=== PATIENT | female | born 1995 | race Caucasian/White ===

== ENCOUNTER 2019-05-03 12:45 | Emergency (ER) | payer OTHER ==
--- NOTE | 2019-05-03 12:51 | EDM.PDOC ---
ED HPI GENERAL MEDICAL PROBLEM - General Chief Complaint: Cardiovascular Problem Stated Complaint: HEART Time Seen by Provider: 05/03/19 12:46 Source of Information: Reports: Patient History Limitations: Reports: No Limitations - History of Present Illness INITIAL COMMENTS - FREE TEXT/NARRATIVE: HISTORY AND PHYSICAL: History of present illness: Patient is a 23-year-old female who presents to the emergency room with concerns of dyspnea and palpitations since yesterday. She states yesterday she didn't try to alleviate her symptoms by resting. Pain is not reproducible and is not exacerbated with physical activity or movement. She does have some mild associated nausea and states "something does not feel right". Patient reports she does have a history of bigeminy/arrhythmia. She has seen a hot braider for this, last time being approximately a year ago at [facility]. Reports there was no concerns at that time and was informed to follow up as needed. Patient denies any fever, chills, headache, change in vision, syncope or near syncope. Denies any back pain or cough. Denies any abdominal pain, vomiting, diarrhea, constipation or dysuria. Patient has been eating and drinking appropriately. Review of systems: As per history of present illness and below otherwise all systems reviewed and negative. Past medical history: As per history of present illness and as reviewed below otherwise noncontributory. Surgical history: As per history of present illness and as reviewed below otherwise noncontributory. Social history: See social history for further information Family history: As per history of present illness and as reviewed below otherwise noncontributory. Physical exam: General: Well-developed and well-nourished 23-year-old female. Alert and oriented. Nontoxic appearing and in no acute distress. HEENT: Atraumatic, normocephalic, pupils equal and reactive bilaterally, negative for conjunctival pallor or scleral icterus, mucous membranes moist, TMs normal bilaterally, throat clear, neck supple, nontender, trachea midline. No drooling or trismus noted. No meningeal signs. No hot potato voice noted. Lungs: Clear to auscultation, breath sounds equal bilaterally, chest nontender. Heart: S1S2, regular rate and rhythm without overt murmur Abdomen: Soft, nondistended, nontender. Negative for masses or hepatosplenomegaly. Negative for costovertebral tenderness. Pelvis: Stable nontender. Genitourinary: Deferred. Rectal: Deferred. Skin: Intact, warm, dry. No lesions or rashes noted. Extremities: Atraumatic, moves all extremities per self without difficulty or deficits, negative for cords or calf pain. Neurovascular unremarkable. Neuro: Awake, alert, oriented. Cranial nerves II through XII unremarkable. Cerebellum unremarkable. Motor and sensory unremarkable throughout. Exam nonfocal. Notes: Lab work is unremarkable. Vital signs are stable. Did discuss all diagnostic findings with patient. Patient states that there is possibly an anxiety component associated with her palpitations. We did discuss possibly following up for a Holter monitor, she states she has done these in the past and they have not found any other findings other than the arrhythmia. We'll give her a limited amount of Ativan to use while her is at home and if her symptoms are high. Supportive care measures were reviewed and discussed. Voices understanding and is agreeable to plan of care. Denies any further questions or concerns at this time. Diagnostics: CBC, CMP, UA, HCGU, TSH, Troponin, EKG, CXR Therapeutics: IV fluids, Toradol Prescription: Ativan 0.5 (#8) Impression: Palpitations Plan: 1. Avoid any stimulants such as caffeine, alcohol or tobacco. 2. Follow-up with your primary care provider for follow-up, may need a Holter monitor for further evaluation. 3. Return to the ED as needed and as discussed. Definitive disposition and diagnosis as appropriate pending reevaluation and review of above. chest Pain Score (Numeric/FACES): 8 - Related Data Allergies Allergy/AdvReac Type Severity Reaction Status Date / Time diphenhydramine Allergy Anaphylactic Verified 05/03/19 12:49 [From Benadryl] Shock Home Meds: Home Meds . [No Known Home Meds] 06/18/16 [History] Past Medical History HEENT History: Reports: None Cardiovascular History: Reports: None Respiratory History: Reports: Other (See Below) Other Respiratory History: Asthma as a child Gastrointestinal History: Reports: None Genitourinary History: Reports: None [employer] History: Reports: Musculoskeletal History: Reports: None Neurological History: Reports: None Psychiatric History: Reports: None Endocrine/Metabolic History: Reports: None Hematologic History: Reports: None Immunologic History: Reports: None Oncologic (Cancer) History: Reports: None Dermatologic History: Reports: None - Infectious Disease History Infectious Disease History: Reports: Chicken Pox - Past Surgical History Head Surgeries/Procedures: Reports: None Female Surgical History: Reports: None Neurological Surgical History: Reports: None Musculoskeletal Surgical History: Reports: None Social & Family History - Family History Family Medical History: Noncontributory Cardiac: Reports: Hypertension, [place] Neurological: Reports: Migraines ED ROS GENERAL - Review of Systems Review Of Systems: ROS reveals no pertinent complaints other than HPI. ED EXAM, GENERAL - Physical Exam Exam: See Below (See dictation) Course - Vital Signs Last Recorded V/S: Last Vital Signs Temp 97.3 F 05/03/19 12:50 Pulse 82 05/03/19 12:50 Resp 18 05/03/19 12:50 BP 126/80 05/03/19 12:50 Pulse Ox 100 05/03/19 12:50 - Orders/Labs/Meds Orders: Active Orders 24 hr Category Date Time Status EKG Documentation Completion [RC] STAT Care 05/03/19 12:56 Active Chest 1V Frontal [CR] Stat Exams 05/03/19 12:56 Taken Labs: Laboratory Tests 05/03/19 05/03/19 05/03/19 Range/Units 13:03 13:03 13:10 WBC 7.74 (4.0-11.0) K/uL RBC 4.61 (4.30-5.90) M/uL Hgb 11.7 L (12.0-16.0) g/dL Hct 36.9 (36.0-46.0) % MCV 80.0 (80.0-98.0) fL MCH 25.4 L (27.0-32.0) pg MCHC 31.7 (31.0-37.0) g/dL RDW Std Deviation 46.0 (28.0-62.0) fl RDW Coeff of Matty 16 H (11.0-15.0) % Plt Count 353 (150-400) K/uL MPV 10.50 (7.40-12.00) fL Nucleated RBC % 0.0 /100WBC Nucleated RBCs # 0 K/uL Sodium 142 (136-145) mmol/L Potassium 3.9 (3.5-5.1) mmol/L Chloride 107 (98-107) mmol/L Carbon Dioxide 24.4 (21.0-32.0) mmol/L BUN 8 (7.0-18.0) mg/dL Creatinine 0.7 (0.6-1.0) mg/dL Est Cr Clr Drug Dosing 131.96 mL/min Estimated GFR (MDRD) > 60.0 ml/min Glucose 98 (74-106) mg/dL Calcium 9.2 (8.5-10.1) mg/dL Total Bilirubin 0.5 (0.2-1.0) mg/dL AST 16 (15-37) IU/L ALT 13 L (14-63) IU/L Alkaline Phosphatase 43 L (46-116) U/L Troponin I < 0.050 (0.000-0.056) ng/mL Total Protein 7.4 (6.4-8.2) g/dL Albumin 4.1 (3.4-5.0) g/dL Globulin 3.3 (2.6-4.0) g/dL Albumin/Globulin Ratio 1.2 (0.9-1.6) TSH 3rd Generation 0.96 (0.36-3.74) uIU/mL Urine Color YELLOW Urine Appearance CLEAR Urine pH 7.0 (5.0-8.0) Ur Specific [place] <= 1.005 (1.001-1.035) Urine Protein NEGATIVE (NEGATIVE) mg/dL Urine Glucose (UA) NEGATIVE (NEGATIVE) mg/dL Urine Ketones NEGATIVE (NEGATIVE) mg/dL Urine Occult Blood NEGATIVE (NEGATIVE) Urine Nitrite NEGATIVE (NEGATIVE) Urine Bilirubin NEGATIVE (NEGATIVE) Urine Urobilinogen 0.2 (<2.0) EU/dL Ur Leukocyte Esterase NEGATIVE (NEGATIVE) Urine HCG, Qual (NEGATIVE) 05/03/19 Range/Units 13:10 WBC (4.0-11.0) K/uL RBC (4.30-5.90) M/uL Hgb (12.0-16.0) g/dL Hct (36.0-46.0) % MCV (80.0-98.0) fL MCH (27.0-32.0) pg MCHC (31.0-37.0) g/dL RDW Std Deviation (28.0-62.0) fl RDW Coeff of Matty (11.0-15.0) % Plt Count (150-400) K/uL MPV (7.40-12.00) fL Nucleated RBC % /100WBC Nucleated RBCs # K/uL Sodium (136-145) mmol/L Potassium (3.5-5.1) mmol/L Chloride (98-107) mmol/L Carbon Dioxide (21.0-32.0) mmol/L BUN (7.0-18.0) mg/dL Creatinine (0.6-1.0) mg/dL Est Cr Clr Drug Dosing mL/min Estimated GFR (MDRD) ml/min Glucose (74-106) mg/dL Calcium (8.5-10.1) mg/dL Total Bilirubin (0.2-1.0) mg/dL AST (15-37) IU/L ALT (14-63) IU/L Alkaline Phosphatase (46-116) U/L Troponin I (0.000-0.056) ng/mL Total Protein (6.4-8.2) g/dL Albumin (3.4-5.0) g/dL Globulin (2.6-4.0) g/dL Albumin/Globulin Ratio (0.9-1.6) TSH 3rd Generation (0.36-3.74) uIU/mL Urine Color Urine Appearance Urine pH (5.0-8.0) Ur Specific [place] (1.001-1.035) Urine Protein (NEGATIVE) mg/dL Urine Glucose (UA) (NEGATIVE) mg/dL Urine Ketones (NEGATIVE) mg/dL Urine Occult Blood (NEGATIVE) Urine Nitrite (NEGATIVE) Urine Bilirubin (NEGATIVE) Urine Urobilinogen (<2.0) EU/dL Ur Leukocyte Esterase (NEGATIVE) Urine HCG, Qual NEGATIVE (NEGATIVE) Meds: Medications Discontinued Medications Generic Name Dose Route Start Last Admin Trade Name Freq PRN Reason Stop Dose Admin Sodium Chloride 1,000 mls @ 999 mls/hr 05/03/19 12:56 05/03/19 13:12 Normal Saline IV 05/03/19 13:56 999 mls/hr STAT ONE Administration Ketorolac Tromethamine 30 mg 05/03/19 12:56 05/03/19 13:12 Toradol IVPUSH 05/03/19 12:57 30 mg ONETIME ONE Administration Ondansetron HCl 4 mg 05/03/19 12:56 05/03/19 13:12 Zofran IVPUSH 05/03/19 12:57 4 mg ONETIME ONE Administration Departure - Departure Time of Disposition: 14:18 Disposition: Home, Self-Care 01 Clinical Impression: Palpitation Instructions: Palpitations, [id number] Referrals: PCP,None [Primary Care Provider] - Forms: ED Department Discharge Additional Instructions: The following information is given to patients seen in the emergency department who are being discharged to home. This information is to outline your options for follow-up care. We provide all patients seen in our emergency department with a follow-up referral. The need for follow-up, as well as the timing and circumstances, are variable depending upon the specifics of your emergency department visit. If you don't have a primary care physician on staff, we will provide you with a referral. We always advise you to contact your personal physician following an emergency department visit to inform them of the circumstance of the visit and for follow-up with them and/or the need for any referrals to a consulting specialist. The emergency department will also refer you to a specialist when appropriate. This referral assures that you have the opportunity for follow-up care with a specialist. All of these measure are taken in an effort to provide you with optimal care, which includes your follow-up. Under all circumstances we always encourage you to contact your private physician who remains a resource for coordinating your care. When calling for follow-up care, please make the office aware that this follow-up is from your recent emergency room visit. If for any reason you are refused follow-up, please contact the [facility] Emergency Department at and asked to speak to the emergency department charge nurse. [facility] [address] [place] [address] [id number] [address] [address] 1. Avoid any stimulants such as caffeine, alcohol or tobacco. 2. Follow-up with your primary care provider for follow-up, may need a Holter monitor for further evaluation. 3. Return to the ED as needed and as discussed. - My Orders Last 24 Hours: My Active Orders 05/03/19 12:56 EKG Documentation Completion [RC] STAT Chest 1V Frontal [CR] Stat - Assessment/Plan Last 24 Hours: My Active Orders 05/03/19 12:56 EKG Documentation Completion [RC] STAT Chest 1V Frontal [CR] Stat
[2019-05-03] MEDS ORDERED: Ondansetron 4 MG/2 ML SDV IVPUSH ONE (12:56)
[2019-05-03] MEDS ORDERED: Sodium Chloride 0.9% 1,000 ML IV ONE (12:56)
[2019-05-03] MEDS ORDERED: Ketorolac 30 MG/ML SDV IVPUSH ONE (12:56)
[2019-05-03 13:39] LABS: CHLORIDE,CL 107 mmol/L (98-107); SODIUM,NA 142 mmol/L (136-145)
[2019-05-03 14:38] VITALS: BP 97/41
--- NOTE | 2019-05-03 14:43 | CR ---
INDICATION: Chest pain TECHNIQUE: Chest 1 views COMPARISON: June 18, 2016 FINDINGS: Cardiovascular and mediastinum: Heart size and vasculature are normal in caliber and appearance. Lungs and pleural spaces: Lungs are clear. No sign of infiltrate or mass. No sign of pleural effusion. No pneumothorax. Bones and soft tissues: No significant findings. IMPRESSION: No acute findings and no significant changes from the prior exam. Dictated by Noe Gracia MD @ May 03 2019 2:41PM Signed by Dr. Noe Gracia @ May 03 2019 2:41PM
== END 2019-05-03 14:38 | disposition home or self-care (01) ==
LOC: MW.ED 12:45
DX: R00.2 Palpitations (principal); Z88.8 Allergy status to other drugs, medicaments and biological substances
CPT/HCPCS: 36415; 71045; 80053; 81003; 81025; 84443; 84484; 85027; 93005; 96361; 96374; 96375; 99285; J1885; J2405; J7040; 99283

== ENCOUNTER 2020-04-06 07:48 | Emergency (ER) | payer OTHER ==
[2020-04-06] MEDS ORDERED: Tetracaine HCl/PF 0.5% 4 ML Bottle EYEBOTH ONE (08:14)
[2020-04-06] MEDS ORDERED: Diphtheria,Pertussis(Acell),Tetanus Vaccine 0.5 ML Syringe IM ONE (08:14)
[2020-04-06] MEDS ORDERED: Tetracaine HCl/PF 0.5% 4 ML Bottle ONE (08:15)
[2020-04-06] MEDS ORDERED: Diphtheria,Pertussis(Acell),Tetanus Vaccine 0.5 ML Syringe ONE (08:16)
[2020-04-06] MEDS ORDERED: Erythromycin Base 0.5% Ophth Oint 1 GM Tube EYEBOTH ONE (08:28)
--- NOTE | 2020-04-06 08:38 | EDM.PDOC ---
ED [facility] GENERAL MEDICAL PROBLEM - General Chief Complaint: Eye Problems Stated Complaint: SOMETHING STUCK IN RIGHT EYE Time Seen by Provider: 04/06/20 07:53 - History of Present Illness INITIAL COMMENTS - FREE TEXT/NARRATIVE: HISTORY AND PHYSICAL: History of present illness: This 24-year-old female who is otherwise healthy, has tobacco dependence and uses vapes daily, social alcohol consumption, and denies use of drugs presents to the emergency department after sitting next to a campfire last night when she felt a sudden foreign body sensation in the right eye. This caused her pain. She tried to wash it out and it did not get better overnight. She awoke with a foreign body sensation and came to the emergency department for evaluation. No change in vision. No drainage. No pain with light sensation. No other associated signs or symptoms. No other modifying, aggravating or alleviating factors. Review of systems: A 10-point review of systems, other than pertinent positives and negatives as stated per HPI, is otherwise negative. Past medical history: As per history of present illness and as reviewed below otherwise noncontributory. Surgical history: As per history of present illness and as reviewed below otherwise noncontributory. Social history: No reported history of drug or alcohol abuse. Family history: As per history of present illness and as reviewed below otherwise noncontributory. Physical exam: VITAL SIGNS: Reviewed. GENERAL: Appears to be in acute pain and occasionally holding her right eye. HEAD: No signs of head trauma. EYES: Pupils are equal. Extraocular motions intact. Scleral injection is present. There is no changes in the anterior chamber. No consensual light response pain. Normal visual exam. EARS: Hearing grossly intact. MOUTH: Oropharynx is normal. NECK: No adenopathy, no JVD. CHEST: Chest with clear breath sounds bilaterally. No wheezes, rales, or rhonchi. CARDIAC: Regular rate and rhythm. Normal S1 and S2, without murmurs, gallops, or rubs. VASCULAR: Peripheral pulses normal and equal in all extremities. ABDOMEN: Soft, without detectable tenderness. No sign of distention. No rebound or guarding, and no masses palpated. MUSCULOSKELETAL: Good range of motion of all major joints. Extremities without clubbing, cyanosis or edema. NEUROLOGIC EXAM: Alert and oriented x 3. No focal sensory or motor deficits. Speech normal. Follows commands. PSYCHIATRIC: Mood normal. SKIN: No rash or lesions. Initial Differential Diagnosis & Plan: Corneal abrasion, corneal ulcer, corneal foreign body, conjunctivitis, scleritis , hyphema Procedure Note: Eye examined under magnification Indication: Foreign body sensation in eye with eye pain After adequate anesthesia with proparacaine eyedrops after staining with fluorescein the eye was inspected under high power magnification and with the black light Findings: 1. No evidence of corneal abrasion 2. Foreign body present under the upper eyelid 3. Anterior chamber appears normal Interpretation: Foreign body present under upper eyelid Signed by Buzz Martinez M.D. Procedure note: Removal of foreign body from external eye Indication: Ocular foreign body After informed consent and adequate anesthesia the eyelid was everted, gently swabbed, and then irrigated copiously under pressure with normal saline using a 22-gauge catheter. This was able to washout multiple black particulates Tolerated well Reexamination showed no evidence of underlying corneal injury. My diagnostic impression: 1. Right eye ocular foreign body; removed Erythromycin ointment in the right eye. We will do initial application here. Patient will use the tube for the next 3 days. Return precautions discussed. Follow-up with ophthalmology clinic given and discharge information. Patient's tetanus is up-to-date. Definitive disposition and diagnosis as appropriate pending reevaluation and review of above. Right Eye Pain Score (Numeric/FACES): 8 - Related Data Allergies Allergy/AdvReac Type Severity Reaction Status Date / Time diphenhydramine Allergy Anaphylactic Verified 04/06/20 08:01 [From Benadryl] Shock Home Meds: Home Meds . [No Known Home Meds] 06/18/16 [History] Past Medical History HEENT History: Reports: None Cardiovascular History: Reports: None Respiratory History: Reports: Other (See Below) Other Respiratory History: Asthma as a child Gastrointestinal History: Reports: None Genitourinary History: Reports: None [employer] History: Reports: Musculoskeletal History: Reports: None Neurological History: Reports: None Psychiatric History: Reports: None Endocrine/Metabolic History: Reports: None Hematologic History: Reports: None Immunologic History: Reports: None Oncologic (Cancer) History: Reports: None Dermatologic History: Reports: None - Infectious Disease History Infectious Disease History: Reports: Chicken Pox - Past Surgical History Head Surgeries/Procedures: Reports: None Female Surgical History: Reports: None Neurological Surgical History: Reports: None Musculoskeletal Surgical History: Reports: None Social & Family History - Family History Family Medical History: Noncontributory Cardiac: Reports: Hypertension, [place] Neurological: Reports: Migraines - Tobacco Use Smoking Status *Q: Never Smoker Second Hand Smoke Exposure: No - Caffeine Use Caffeine Use: Reports: None - Recreational Drug Use Recreational Drug Use: No ED ROS GENERAL - Review of Systems Review Of Systems: Unable To Obtain (see note) Reason Not Obtained: see note ED EXAM GENERAL W FULL EYE - Physical Exam Exam: Not Obtained (see note) Course - Vital Signs Last Recorded V/S: Last Vital Signs Temp 96.9 F 04/06/20 08:00 Pulse 79 04/06/20 08:00 Resp 18 04/06/20 08:00 BP 101/69 04/06/20 08:00 Pulse Ox 100 04/06/20 08:00 - Orders/Labs/Meds Orders: Active Orders 24 hr Category Date Time Status Vaccines to be Administered [RC] PER UNIT ROUTINE Care 04/06/20 08:15 Active Meds: Medications Discontinued Medications Generic Name Dose Route Start Last Admin Trade Name Edward PRN Reason Stop Dose Admin Diphtheria/Tetanus/Acell Pertussis 0.5 ml 04/06/20 08:14 04/06/20 08:18 Boostrix IM 04/06/20 08:15 Not Given .ONCE ONE Diphtheria/Tetanus/Acell Pertussis Confirm 04/06/20 08:16 Adacel Administered 04/06/20 08:17 Dose 0.5 ml .ROUTE .STK-MED ONE Erythromycin 1 gm 04/06/20 08:28 Erythromycin 0.5% Ophth Oint EYEBOTH 04/06/20 08:29 ONETIME ONE Tetracaine HCl 1 ml 04/06/20 08:14 Tetracaine 0.5% Steri-Unit Allison EYEBOTH 04/06/20 08:15 ASDIRECTED ONE Tetracaine HCl Confirm 04/06/20 08:15 04/06/20 08:18 Tetracaine 0.5% Steri-Unit Allison Administered 04/06/20 08:16 Not Given Dose 4 ml .ROUTE .STK-MED ONE Departure - Departure Time of Disposition: 08:29 Disposition: Home, Self-Care 01 Clinical Impression: Foreign body of eye, external, right - Discharge Information *PRESCRIPTION DRUG MONITORING PROGRAM REVIEWED*: Not Applicable *COPY OF PRESCRIPTION DRUG MONITORING REPORT IN PATIENT NINI: Not Applicable Instructions: Eye Foreign Body, [id number] Referrals: PCP,None [Primary Care Provider] - Additional Instructions: The following information is given to patients seen in the emergency department who are being discharged to home. This information is to outline your options for follow-up care. We provide all patients seen in our emergency department with a follow-up referral. The need for follow-up, as well as the timing and circumstances, are variable depending upon the specifics of your emergency department visit. If you don't have a primary care physician on staff, we will provide you with a referral. We always advise you to contact your personal physician following an emergency department visit to inform them of the circumstance of the visit and for follow-up with them and/or the need for any referrals to a consulting specialist. The emergency department will also refer you to a specialist when appropriate. This referral assures that you have the opportunity for follow-up care with a specialist. All of these measure are taken in an effort to provide you with optimal care, which includes your follow-up. Under all circumstances we always encourage you to contact your private physician who remains a resource for coordinating your care. When calling for follow-up care, please make the office aware that this follow-up is from your recent emergency room visit. If for any reason you are refused follow-up, please contact the [facility] Emergency Department at and asked to speak to the emergency department charge nurse. Thank you for coming to [facility] emergency department. Dr. Martinez was very happy to take care of you today. You had a foreign body in your eye. This was removed after close inspection under magnification and black light. We also irrigated your eye. Please use the erythromycin ointment that we gave you 2-3 times a day for the next 3 days. Please follow-up with ophthalmology clinic listed below. Return immediately to the emergency department for drainage from your eye, fever, difficulty with vision, or any other concerns. Florinda Garner [facility] -Ophthalmology clinic [address] [place] [id number] Sepsis Event Note - Evaluation Sepsis Screening Result: No Definite Risk - Focused Exam Vital Signs: Vital Signs Temp Pulse Resp BP Pulse Ox 04/06/20 08:00 96.9 F 79 18 101/69 100 Date Exam was Performed: 04/06/20 Time Exam was Performed: 08:29 - My Orders Last 24 Hours: My Active Orders 04/06/20 08:15 Vaccines to be Administered [RC] PER UNIT ROUTINE - Assessment/Plan Last 24 Hours: My Active Orders 04/06/20 08:15 Vaccines to be Administered [RC] PER UNIT ROUTINE
[2020-04-06 08:51] VITALS: BP 124/69; PULSE 82
== END 2020-04-06 08:51 | disposition home or self-care (01) ==
LOC: MW.ED 07:48
DX: T15.91XA Foreign body on external eye, part unspecified, right eye, initial encounter (principal); Z88.8 Allergy status to other drugs, medicaments and biological substances
CPT/HCPCS: 67938; 99283; A9270; 65222; 99282